=== PATIENT | female | born 1985 | race Asian ===

== ENCOUNTER 2018-08-11 00:16 | Emergency (ER) | payer MEDICAID ==
[~2018-08-11] VITALS: Ht 157.5 cm; Wt 55.0 kg
[2018-08-11] MEDS ORDERED: KETOROLAC 60MG/2ML VIAL IM ONE (05:45)
[2018-08-11 07:13] VITALS: BP 115/67
== END 2018-08-11 07:15 | disposition home or self-care (01) ==
LOC: ER 00:16
DX: M25.512 Pain in left shoulder (principal); M25.552 Pain in left hip; M25.551 Pain in right hip; M54.5 Low back pain; M54.2 Cervicalgia; G43.909 Migraine, unspecified, not intractable, without status migrainosus; F12.10 Cannabis abuse, uncomplicated; M51.26 Other intervertebral disc displacement, lumbar region; Z88.0 Allergy status to penicillin; Z87.828 Personal history of other (healed) physical injury and trauma; Y08.89XA Assault by other specified means, initial encounter
CPT/HCPCS: 72170; 81025; 96372; 99283; J1885